=== PATIENT | male | born 1975 | race African-American/Black ===

== ENCOUNTER 2018-12-22 09:35 | Inpatient (IN) | payer OTHER ==
[~2018-12-22] VITALS: Ht 175.3 cm; Wt 72.1 kg
[2018-12-22 10:44] LABS: CHLORIDE 97 mEq/L (98-107)
[2018-12-22 10:46] LABS: HEMATOCRIT. 25.8 % (42.0-52.0); HEMOGLOBIN. 8.8 g/dL (14.0-18.0); MEAN CORPUSCULAR HEMOGLOBIN 32.6 pg (28.0-32.0); MEAN CORPUSCULAR VOLUME 95.4 fL (80.0-94.0); MEAN PLATELET VOLUME 10.5 fl (7.4-10.4); PLATELET 61 x1000/uL (130-400); RED BLOOD CELL COUNT 2.71 mill/uL (4.7-6.1); RED CELL DISTRIBUTION WIDTH 14.9 % (11.6-14.6)
[2018-12-22] MEDS ORDERED: VANCOMYCIN 1 G PREMIX 200 ML IV ONE (11:30)
[2018-12-22] MEDS ORDERED: PIPERACILLIN/TAZ 3.375G PREMIX 50 ML IV ONE (11:30)
[2018-12-22 13:35] LABS: INR 1.1; PARTIAL THROMBOPLASTIN TIME 30.8 sec (23.4-31.0); PROTHROMBIN TIME 10.9 sec (9.6-11.0)
[2018-12-22] MEDS ORDERED: SODIUM BICARBONATE 4% (2.4MEQ) 5ML VIAL IV ONE (13:54)
[2018-12-22] MEDS ORDERED: LIDOCAINE HCL 1% 20ML VIAL (Pyxis) INJ ONE (13:54)
[2018-12-22 15:10] LABS: PLATELET ESTIMATE DECREASED
[2018-12-22 15:58] VITALS: BP 159/98
[2018-12-22] MEDS ORDERED: HYDROMORPHONE HCL/PF 2MG/ML CPJ IV PRN (16:30)
[2018-12-22] MEDS ORDERED: GUAIFENESIN 200MG/10ML SUGAR FREE UDC PO PRN (16:30)
[2018-12-22] MEDS ORDERED: DIPHENHYDRAMINE 50MG/ML VIAL IV PRN (16:30)
[2018-12-22] MEDS ORDERED: LORAZEPAM 2MG/ML CPJ IV PRN (16:30)
[2018-12-22] MEDS ORDERED: CLONIDINE 0.1MG TABLET PO PRN (16:30)
[2018-12-22] MEDS ORDERED: DOCUSATE SODIUM 100MG CAPSULE PO PRN (16:30)
[2018-12-22] MEDS ORDERED: PIPERACILLIN/TAZ 3.375G PREMIX 50 ML IV SCH (16:30)
[2018-12-22] MEDS ORDERED: ONDANSETRON HCL 4MG/2ML INJ IV PRN (16:30)
[2018-12-22] MEDS ORDERED: IPRATROPIUM/ALBUTEROL 0.5-3(2.5)MG/3ML NEB INH PRN (16:30)
[2018-12-22] MEDS ORDERED: MAGNESIUM/ALUMINUM HYDROXIDE/SIMETHICONE 30ML UDC PO PRN (16:30)
[2018-12-22] MEDS ORDERED: ACETAMINOPHEN 325MG TABLET PO PRN (16:30)
[2018-12-22] MEDS ORDERED: HYDR100T26 PO (17:57)
[2018-12-22] MEDS ORDERED: MINO2.5T2 PO (17:57)
[2018-12-22] MEDS ORDERED: AMLO2.5T45 PO (17:57)
[2018-12-22] MEDS ORDERED: CARV25TA47 PO (17:57)
[2018-12-22] MEDS ORDERED: FURO80TA3 PO (17:57)
[2018-12-22] MEDS ORDERED: CLON0.1T PO (17:57)
[2018-12-22] MEDS ORDERED: ATOR10TA PO (17:57)
[2018-12-22 18:15] VITALS: BP 159/98
[2018-12-22 20:00] VITALS: BP 160/92
[2018-12-22] MEDS: SODIUM CHLORIDE 0.9% INJ 3ML FLUSH IVF SCH (20:32)
[2018-12-22] MEDS: PIPERACILLIN/TAZ 2.25G PREMIX 50 ML IV SCH (20:32)
[2018-12-22] MEDS: HYDROCODONE/ACETAMINOPHEN 10/325MG TABLET PO PRN (23:32)
[2018-12-23] VITALS: BP 160/86
[2018-12-23 01:01] LABS: CREATINE KINASE 52 IU/L (39-308)
[2018-12-23 01:02] LABS: CREATINE KINASE MB FRACTION < 1.0 ng/mL (0.5-3.6)
[2018-12-23] MEDS: HYDRALAZINE 20MG/ML VIAL IV PRN (01:03)
[2018-12-23 04:00] VITALS: BP 169/91
[2018-12-23] MEDS: PIPERACILLIN/TAZ 2.25G PREMIX 50 ML IV SCH ×3 (05:49→20:51)
[2018-12-23] MEDS: SODIUM CHLORIDE 0.9% INJ 3ML FLUSH IVF SCH ×3 (05:49→20:51)
[2018-12-23] MEDS ORDERED: VANCOMYCIN 750 MG PREMIX 150 ML IV NR (06:00)
[2018-12-23 06:41] LABS: HEMATOCRIT. 24.6 % (42.0-52.0); HEMOGLOBIN. 8.5 g/dL (14.0-18.0); MEAN CORPUSCULAR VOLUME 95.9 fL (80.0-94.0); MEAN PLATELET VOLUME 10.6 fl (7.4-10.4); PLATELET 62 x1000/uL (130-400); RED BLOOD CELL COUNT 2.57 mill/uL (4.7-6.1); RED CELL DISTRIBUTION WIDTH 14.8 % (11.6-14.6)
[2018-12-23 06:55] LABS: CHLORIDE 95 mEq/L (98-107)
[2018-12-23 07:09] LABS: CREATINE KINASE 47 IU/L (39-308)
[2018-12-23 07:13] LABS: CREATINE KINASE MB FRACTION < 1.0 ng/mL (0.5-3.6)
[2018-12-23 08:00] VITALS: BP 170/98
[2018-12-23] MEDS ORDERED: SODIUM BICARBONATE 4% (2.4MEQ) 5ML VIAL IV ONE (09:37)
[2018-12-23] MEDS ORDERED: LIDOCAINE HCL 1% 20ML VIAL (Pyxis) INJ ONE (09:37)
[2018-12-23] MEDS: AMLODIPINE 5MG TABLET PO SCH ×2 (11:45→20:51)
[2018-12-23 12:00] VITALS: BP 181/98
[2018-12-23 13:14] LABS: PLATELET ESTIMATE DECREASED
[2018-12-23] MEDS: CLONIDINE 0.1MG TABLET PO SCH ×2 (13:42→20:51)
[2018-12-23] MEDS: HYDROCODONE/ACETAMINOPHEN 10/325MG TABLET PO PRN (13:49)
[2018-12-23 16:00] VITALS: BP 148/92
[2018-12-23] MEDS: METRONIDAZOLE 500 MG PREMIX 100 ML IV SCH (16:39)
[2018-12-23 20:00] VITALS: BP 173/102
[2018-12-24] VITALS: BP 172/114
[2018-12-24 03:49] VITALS: BP 155/91
[2018-12-24] MEDS: PIPERACILLIN/TAZ 2.25G PREMIX 50 ML IV SCH ×2 (05:21→13:00)
[2018-12-24] MEDS: CLONIDINE 0.1MG TABLET PO SCH (05:21)
[2018-12-24] MEDS: METRONIDAZOLE 500 MG PREMIX 100 ML IV SCH (05:21)
[2018-12-24] MEDS: SODIUM CHLORIDE 0.9% INJ 3ML FLUSH IVF SCH ×2 (05:27→13:00)
[2018-12-24 06:17] LABS: BASOPHILS % 0.5 % (0.0-2.0); EOSINOPHILS % 2.3 % (0.0-5.0); HEMATOCRIT. 25.8 % (42.0-52.0); HEMOGLOBIN. 8.7 g/dL (14.0-18.0); LYMPHOCYTES % 7.2 % (20.0-50.0); MEAN CORPUSCULAR HEMOGLOBIN 32.2 pg (28.0-32.0); MEAN CORPUSCULAR VOLUME 95.5 fL (80.0-94.0); MEAN PLATELET VOLUME 9.9 fl (7.4-10.4); MONOCYTES % 9.4 % (2.0-8.0); NEUTROPHILS % 80.6 % (40.0-76.0); PLATELET 64 x1000/uL (130-400); RED CELL DISTRIBUTION WIDTH 14.9 % (11.6-14.6)
[2018-12-24 08:00] VITALS: BP 169/100
[2018-12-24] MEDS: AMLODIPINE 5MG TABLET PO SCH (09:03)
[2018-12-24] MEDS: HYDRALAZINE 20MG/ML VIAL IV PRN (10:23)
[2018-12-24 12:00] VITALS: BP 155/99
[2018-12-24] MEDS ORDERED: CLONIDINE 0.2MG TABLET PO SCH (14:00)
== END 2018-12-24 14:45 | disposition left against medical advice (07) | DRG 314 ==
LOC: ER 09:35 → 8WST 12:33 → EDBEDREQ 12:34 → EDBEDREQSVC 12:34 → EDBEDREQ 12:35 → ENRESERV 14:49
PROVIDERS: ADMIT Internal Medicine; ATTEND Internal Medicine
PROC: 02PYX3Z Removal of Infusion Device from Great Vessel, External Approach (ICD-10-PCS; principal; 2018-12-22)
PROC: 02HV33Z Insertion of Infusion Device into Superior Vena Cava, Percutaneous Approach (ICD-10-PCS; 2018-12-23)
PROC: B5181ZA Fluoroscopy of Superior Vena Cava using Low Osmolar Contrast, Guidance (ICD-10-PCS; 2018-12-23)
PROC: B548ZZA Ultrasonography of Superior Vena Cava, Guidance (ICD-10-PCS; 2018-12-23)
PROC: 5A1D70Z Performance of Urinary Filtration, Intermittent, Less than 6 Hours Per Day (ICD-10-PCS; 2018-12-23)
DX: T80.211A Bloodstream infection due to central venous catheter, initial encounter (principal); A41.9 Sepsis, unspecified organism; E43 Unspecified severe protein-calorie malnutrition; N18.6 End stage renal disease; I33.0 Acute and subacute infective endocarditis; I13.11 Hypertensive heart and chronic kidney disease without heart failure, with stage 5 chronic kidney disease, or end stage renal disease; B96.89 Other specified bacterial agents as the cause of diseases classified elsewhere; D69.6 Thrombocytopenia, unspecified; E78.5 Hyperlipidemia, unspecified; D64.9 Anemia, unspecified; Y83.8 Other surgical procedures as the cause of abnormal reaction of the patient, or of later complication, without mention of misadventure at the time of the procedure; Z53.21 Procedure and treatment not carried out due to patient leaving prior to being seen by health care provider; Z99.2 Dependence on renal dialysis; Z79.899 Other long term (current) drug therapy; Z91.018 Allergy to other foods; Y92.89 Other specified places as the place of occurrence of the external cause; Z68.23 Body mass index [BMI] 23.0-23.9, adult
CPT/HCPCS: 36415; 36589; 71045; 77001; 80048; 80202; 82550; 82553; 84484; 87070; 87077; 87493; 93005; 93306; 93970; C1752; J0360; J1642; J2060; J2405; J2543; J3370; J3490; J7040; J7050